=== PATIENT | female | born 2000 | race Caucasian/White ===

== ENCOUNTER 2025-01-04 23:15 | Emergency (ER) | payer BC, SELFPAY ==
--- NOTE | ~2025-01-04 | CT_ITS ---
EXAMINATION: CT abdomen pelvis w con DATE: 01/05/2025 01:11 INDICATION: Right-sided abdominal pain and flank pain. TECHNIQUE: Computed tomography (CT) of the abdomen and pelvis was performed with 100 mL Omnipaque-350 intravenous contrast. Automated exposure control and iterative reconstruction technique were employe d. The dose-length product was 603.19 mGy-cm. COMPARISON: None FINDINGS: Lung bases are clear. Heart size is normal. No pericardial or pleural effusion. Multiple gallstones w ithin the otherwise normal-appearing gallbladder. Liver is normal. No intra-axial hepatic biliary gail yury dilation. Spleen, pancreas, bilateral adrenal glands and kidneys are normal. Bladder is normal. A nteverted uterus and bilateral adnexa are unremarkable. Bowels including the appendix are normal. No free intraperitoneal gas or fluid. No pathologically enlarged abdominal or pelvic lymphadenopathy. John nidia are unremarkable. IMPRESSION: 1. No acute intra-abdominal/pelvic process. 2. Cholelithiasis. Reviewed, dictated and finalized at location A.
[2025-01-04 23:17] VITALS: BP 164/109; PULSE 94; RESP 18; TEMP 36.6; O2SAT 95
--- NOTE | 2025-01-04 23:24 | ECG_ITS ---
Test Date: 2025-01-04 23:32:25 Measurements Intervals [place] Rate: 74 P: 18 [place]: 136 QRS: 40 QRSD: 78 T: 17 QT: 351 QTc: 390 Interpretive Statements SINUS RHYTHM WITH SINUS ARRHYTHMIA LOW QRS VOLTAGE IN PRECORDIAL LEADS BASELINE ARTIFACT- I, II, III, AVR, AVL, AVF, V1-V6 BORDERLINE ECG No previous ECG available for comparison Electronically Signed On 01-05-2025 07:58:48 CDT by Scott Chamberlain D.O.
--- NOTE | 2025-01-04 23:26 | ED.ABDPAIN ---
HPI - Abdominal Pain General Chief Complaint: Abdominal Pain Stated Complaint: abdominal pain Time Seen by Provider: 01/04/25 23:24 Source: patient Mode of arrival: ambulatory Limitations: no limitations History of Present Illness HPI narrative: this is a 24-year-old female with no significant past medical history presents with abdominal pain localizing to right upper quadrant and epigastric area with some nausea currently no vomiting no fever chills. There is no dysuria no hematuria does have some right flank discomfort with no chest pain. MD elicited complaint: abdominal pain Onset (ago): hour(s) Pain Consistency: constant Location: epigastric and RUQ Severity: moderate Pain scale (0-10): 7 Quality: aching Radiation: RUQ and epigastric Exacerbating factors: vomiting Relieving factors: nothing Related Data Allergies Allergy/AdvReac Type Severity Reaction Status Date / Time aloe vera Allergy Intermediate hives Verified 01/04/25 23:34 bee venom protein (honey bee) Allergy Intermediate hives Verified 01/04/25 23:34 Review of Systems Review of Systems: All systems reviewed & are unremarkable except as noted in HPI and below PMFSH Past Medical History Medical History Patient denies medical problems Exam Const: General: healthy appearing and no acute distress Nutritional Appearance: obese Orientation/consciousness: patient oriented x3 Limitations: no limitations HENMT: Head: normal to inspection Neck: Neck: normal visual inspection, no lymphadenopathy and no meningeal signs Chest: Chest palpation & inspection: normal inspection of the chest Resp: Effort & Inspection: normal respiratory effort Auscultation: clear to auscultation bilaterally Cardio: Rate: regular rate GI: GI Palp: Yes Soft to palpation and Yes Tenderness to palpation present (GI) Auscultation: normal bowel sounds : General: Yes bladder normal to palpation Urinary Catheter: Urinary Catheter: patent and draining Skin: General skin exam: normal color Rashes: no rashes Wounds: no wounds Neuro: General: patient oriented x3, moves all extremities, no meningeal signs and no focal motor deficits Cranial nerves: Yes Nystagmus not present Speech: normal speech Extrem: General: normal to inspection Course Course Emergency Course: CT scan showed no gallbladder thickening or inflammation did show multiple small gallstones otherwise unremarkable. Rest of her blood work was within normal limits, patient received Toradol and Zofran and IV fluids and pain level is controlled. Vital Signs Vital signs: Vital Signs Temperature 36.6 C 01/04/25 23:17 Pulse Rate 94 01/04/25 23:17 Respiratory Rate 18 01/04/25 23:17 Blood Pressure 164/109 H 01/04/25 23:17 Pulse Oximetry 95 01/04/25 23:17 Oxygen Delivery Room Air 01/04/25 23:17 Temperature 36.6 C 01/04/25 23:17 Pulse Rate 94 01/04/25 23:17 Respiratory Rate 18 01/04/25 23:17 Blood Pressure 164/109 H 01/04/25 23:17 Pulse Oximetry 95 01/04/25 23:17 Oxygen Delivery Room Air 01/04/25 23:17 MDM - Abdominal Pain Lab Data 01/04/25 23:24 01/04/25 23:24 Labs: Lab Results 01/04/25 Range/Units 23:24 WBC 14.0 H (4.8-10.8) K/mm3 RBC 4.61 (4.20-5.40) M/mm3 Hgb 12.7 (12.0-15.0) g/dL Hct 40.4 (35.0-49.0) % MCV 87.6 (78.0-102.0) fL MCH 27.5 (27.0-31.0) pg MCHC 31.4 L (32-36) g/dL RDW 14.4 (11.6-14.4) % Plt Count 438 H (150-420) K/mm3 MPV 9.3 (9.2-11.8) fl Immature Gran % (Auto) 0.4 H (0.0-0.0) % Neut % (Auto) 59.9 (50.0-70.0) % Lymph % (Auto) 30.9 (18.0-42.0) % [place] % (Auto) 6.5 (2.0-11.0) % Eos % (Auto) 1.8 (1.0-6.0) % Baso % (Auto) 0.5 (0.0-1.0) % Lymph # (Auto) 4.32 (1.10-4.50) K/mm3 [place] # (Auto) 0.91 H (0.10-0.90) K/mm3 Eos # (Auto) 0.25 (0.02-0.50) K/mm3 Baso # (Auto) 0.07 (0.00-0.10) K/mm3 Abs Immat Gran (auto) 0.06 H (0.00-0.00) K/mm3 Absolute Neuts (auto) 8.36 H (1.70-7.20) K/mm3 Absolute Nucleated RBC 0.00 (0.00-0.00) K/mm3 Nucleated RBC % 0.0 (0-0.0) % PT 9.7 (9.64-11.0) Seconds INR 0.9 APTT 26.2 (23.9-30.70) Sec Sodium 140 (136-145) mmol/L Potassium 4.0 (3.5-5.1) mmol/L Chloride 103 (98-108) mmol/L Carbon Dioxide 29 (21-32) mmol/L Anion Gap 8 (4-12) mmol/L BUN 8 (7-18) mg/dL Creatinine 0.92 (0.55-1.02) mg/dL Estim Creat Clear Calc 87 ml/min Estimated GFR > 60 (59 - ) Glucose 111 H (70-99) mg/dL Calculated Osmolality 289 (285-295) mOsm/kg Lactic Acid 0.9 (0.4-2.0) mmol/L Calcium 9.8 (8.5-10.1) mg/dL Total Bilirubin 0.3 (0.00-1.00) mg/dL AST 26 (15-37) U/L ALT 75 H (14-59) U/L Alkaline Phosphatase 78 (46-116) U/L Troponin I 11.7 (0.00-60.4) ng/L Total Protein 8.4 H (6.4-8.2) g/dL Albumin 3.7 (3.4-5.0) g/dL Lipase 29 (16-77) U/L Urine Color Light yellow (Yellow) Urine Appearance Clear (Clear) Urine pH 7.0 (5.0-8.0) Ur Specific [place] 1.025 H (1.010-1.020) Urine Protein Negative (Negative) Urine Glucose (UA) Negative (Negative) Urine Ketones Negative (Negative) Ur Blood (Man) Trace-intact H (Negative) Urine Nitrate Negative (Negative) Urine Bilirubin Negative (Negative) Urine Urobilinogen 1.0 (0.2-1.0) mg/dL Leukocyte Esterase Rfl Negative (Negative) GOSIA/UL Urine Test Negative Critical Care Time Critical Care Time Critical Care Time: No Discharge Plan Discharge Clinical Impression: Gallstones Abdominal pain Qualifiers: Abdominal location: right upper quadrant Qualified Code(s): R10.11 - Right upper quadrant pain Patient Disposition: Home Condition: Stable Instructions: Antibiotic Form, Gallstones (ED), Abdominal Pain (ED) Additional Instructions: advised to take medication as prescribed and to follow with primary care physician within 1 week further evaluation and treatment. Patient Language: [place] Prescriptions: New tramadol 50 mg tablet 50 mg PO Q6H PRN (Reason: pain) Qty: 20 0RF ondansetron 4 mg tablet,disintegrating 4 mg PO Q6H PRN (Reason: nausea and vomiting) Qty: 14 0RF Follow-up/Referrals: Pnachito Teixeira MD [Primary Care Provider] - Time of Disposition: 02:34
--- NOTE | 2025-01-04 23:32 | PC.NURSE ---
pt aware urine specimen is needed. pt unable to go at this time
[2025-01-04 23:38] LABS: Basophils Absolute Auto 0.07 K/mm3 (0.00-0.10); Basophils Percent Auto 0.5 % (0.0-1.0); Eosinophils Absolute Auto 0.25 K/mm3 (0.02-0.50); Eosinophils Percent Auto 1.8 % (1.0-6.0); Hematocrit 40.4 % (35.0-49.0); Hemoglobin 12.7 g/dL (12.0-15.0); Immature Granulocyte Absolute 0.06 K/mm3 (0.00-0.00); Immature Granulocyte Percent A 0.4 % (0.0-0.0); Lymphocytes Absolute Auto 4.32 K/mm3 (1.10-4.50); Lymphocytes Percent Auto 30.9 % (18.0-42.0); Mean Corpuscular HGB Conc 31.4 g/dL (32-36); Mean Corpuscular Hemoglobin 27.5 pg (27.0-31.0); Mean Corpuscular Volume 87.6 fL (78.0-102.0); Mean Platelet Volume 9.3 fl (9.2-11.8); Monocytes Absolute Auto 0.91 K/mm3 (0.10-0.90); Monocytes Percent Auto 6.5 % (2.0-11.0); Neutrophils Absolute Auto 8.36 K/mm3 (1.70-7.20); Neutrophils Percent Auto 59.9 % (50.0-70.0); Platelet Count Result 438 K/mm3 (150-420); Red Blood Count 4.61 M/mm3 (4.20-5.40); Red Cell Distribution Width 14.4 % (11.6-14.4)
[2025-01-04] MEDS: KETOROLAC 30 MG/ML VIAL (*BKC) IV PUSH (23:41)
[2025-01-04] MEDS: SODIUM CHLORIDE 0.9% IV 1,000 ML 999 ML IV CONT (23:41)
[2025-01-04] MEDS: ONDANSETRON INJ 4 MG/2 ML VIAL IV PUSH (23:42)
[2025-01-05 00:05] LABS: INR 0.9; Partial Thromboplastin Time 26.2 Sec (23.9-30.70); Prothrombin Time 9.7 Seconds (9.64-11.0)
[2025-01-05 00:06] LABS: Lactic Acid Reflex 0.9 mmol/L (0.4-2.0)
[2025-01-05 00:12] LABS: Alanine Aminotransferase 75 U/L (14-59); Albumin Level 3.7 g/dL (3.4-5.0); Alkaline Phosphatase 78 U/L (46-116); Anion Gap 8 mmol/L (4-12); Aspartate Amino Transferase 26 U/L (15-37); Bilirubin,Total 0.3 mg/dL (0.00-1.00); Blood Urea Nitrogen 8 mg/dL (7-18); Calcium 9.8 mg/dL (8.5-10.1); Carbon Dioxide 29 mmol/L (21-32); Chloride 103 mmol/L (98-108); Estimated CRCL calculation 87 ml/min; Estimated Glomerular Filt Rate > 60; Glucose 111 mg/dL (70-99); Lipase 29 U/L (16-77); Osmolality Calculated 289 mOsm/kg (285-295); Sodium 140 mmol/L (136-145); Total Protein 8.4 g/dL (6.4-8.2); Troponin I 11.7 ng/L (0.00-60.4)
[2025-01-05 00:55] LABS: Pregnancy On Board Control Positive; Urine Pregnancy Test Negative
[2025-01-05 00:59] LABS: Add Urine Microscopic? NO; Appearance Urine Clear (Clear); Bilirubin Urine Negative (Negative); Blood Urine Trace-intact (Negative); Color Urine Light Yellow (Yellow); Glucose Urine UA Negative (Negative); Ketones Urine Negative (Negative); Leukocyte Esterase Ur Negative LEU/UL (Negative); Nitrate Urine Negative (Negative); Protein Urine Negative (Negative); Specific Grav Ur 1.025 (1.010-1.020)
[2025-01-05 02:42] VITALS: BP 134/78; PULSE 72; RESP 18; O2SAT 99
== END 2025-01-05 02:42 | disposition home or self-care (01) ==
LOC: CHSED 23:40
PROVIDERS: Emergency Provider Emergency Medicine; PCP Family Medicine
DX: K80.20 Calculus of gallbladder without cholecystitis without obstruction (principal)
CPT/HCPCS: 36415; 74177; 80053; 81003; 81025; 83605; 83690; 84484; 85025; 85610; 85730; 93005; 96361; 96374; 96375; 99284; J1885; J2405; J7030; Q9967